=== PATIENT | male | born 1970 | race Caucasian/White ===

== ENCOUNTER 2021-05-09 02:17 | Day surgery (SDC) | payer BC, SELFPAY ==
[2021-04-25 14:54] VITALS: BMI 23.2
[2021-05-09 09:22] VITALS: BP 122/92; PULSE 96; RESP 18; TEMP 36.2; O2SAT 99
[2021-05-09] MEDS: LACTATED RINGERS 1,000 ML 150 ML IV CONT (09:42)
--- NOTE | 2021-05-09 10:13 | WPDANESEPPF ---
Anes - Initial Pre Proc Eval Procedure: Operation Date: 05/09/21 10:30 Proposed Procedures p Screening Colonoscopy - Florencio Trevizo MD Date/Time: 05/09/21 10:13 Surgeon: Florencio Trevizo MD Pre Op Diagnosis: neoplasm screening Patient Data Age: 50 Gender: M Height: 1.77 m Weight: 72.5 kg Last Vital Signs Temp 97.1 F L 05/09/21 09:22 Pulse 96 05/09/21 09:22 Resp 18 05/09/21 09:22 BP 122/92 H 05/09/21 09:22 Pulse Ox 99 05/09/21 09:22 Allergies Allergy/AdvReac Type Severity Reaction Status Date / Time Penicillins Allergy Unknown Rash Verified 11/11/20 08:40 Home Medications Medication Instructions Recorded Confirmed Type No Home Medications 05/01/20 11/11/20 History Patient hx anesthesia problems: none Family hx anesthesia problems: none Results Review: All pre-operative results and documents have been reviewed as part of the pre-operative evaluation. COUNTS INCLUDE 234 BEDS AT THE [facility] Past Medical History Medical History (Updated 05/09/21 @ 10:04 by Reymundo Ortiz MD) Benign essential HTN History of kidney stones Mixed hyperlipidemia Surgical History Surgical History History of lithotripsy Family History Family History Father Family history of diabetes mellitus in first degree relative Family history of coronary artery disease Mother Family history of malignant neoplasm of thyroid Social History Social History Smoking packs per day: 1 Smoking cigarettes per day: 20.0 Years smoked: 8 Smoking pack-years: 8.00 Smoking status: Former smoker Tobacco type: cigarettes Smoking end date: 08/16/04 Alcohol intake: current Drinks per week: 2 Alcohol use details: occasional Substance use: never Substance use type: does not use Living arrangements: with family Gender identity (if verbalized by the patient): Male Spiritual care concerns: No Anes - Eval Final PreProcedure Day of Procedure 05/09/21 10:13 Patient weight: normal Heart: regular rate and rhythm Airway: Mallampati scale class II Neurological: alert and oriented Last oral intake: >/= 8 hours ASA classification: II Emergent: no Anesthetic plan: proceed Anesthesia type and monitoring: general GIVS and standard monitoring Results Review: All pre-operative results and documents have been reviewed as part of the pre-operative evaluation. Informed Consent: The patient's anesthetic plan and its attendant risks and benefits were discussed with the patient/family/POA. Questions were solicited and answers provided to the satisfaction of the patient/family/POA.
--- NOTE | 2021-05-09 10:20 | PM.HPGS ---
History of Present Illness History of Present Illness Consent: Risks, benefits, and alternatives have been discussed and questions answered. Patient agrees to proceed with procedure. Chief complaint: neoplasm screening Narrative: Yoni Segovia is a 50 year old male here for first screening colonoscopy Review of Systems Constitutional: Constitutional: Denies headache(s) and Denies weakness Eyes: Eyes: Denies blurry vision ENT: Reports Normal hearing present, Denies headache(s) and Denies neck pain Cardiovascular: Cardiovascular: Denies chest pain and Denies dyspnea Respiratory: Respiratory: Denies dyspnea Gastrointestinal: Gastrointestinal: Reports no additional gastrointestinal complaints Genitourinary: Genitourinary: Denies dysuria Musculoskeletal: Musculoskeletal: Denies neck pain Integumentary/Breasts: Skin/Breast: Denies dry skin Neurologic: Reports Normal hearing present, Denies headache(s) and Denies weakness Psychiatric: Psychiatric: Denies anxiety Endocrine: Endocrine: Denies change in body appearance Hematologic/Lymphatic: Hematologic/Lymphatic: Denies easy bleeding Allergic/Immunologic: Allergic/Immunologic: Denies urticaria [facility] Past Medical History Medical History (Updated 05/09/21 @ 10:20 by Florencio Trevizo MD) Benign essential HTN Colon cancer screening History of kidney stones Mixed hyperlipidemia Surgical History Surgical History History of lithotripsy Family History Family History Father Family history of diabetes mellitus in first degree relative Family history of coronary artery disease Mother Family history of malignant neoplasm of thyroid Social History Social History Smoking packs per day: 1 Smoking cigarettes per day: 20.0 Years smoked: 8 Smoking pack-years: 8.00 Smoking status: Former smoker Tobacco type: cigarettes Smoking end date: 08/16/04 Alcohol intake: current Drinks per week: 2 Alcohol use details: occasional Substance use: never Substance use type: does not use Living arrangements: with family Gender identity (if verbalized by the patient): Male Spiritual care concerns: No Meds Home Medications and Allergies Home Medications Medication Instructions Recorded Confirmed Type No Home Medications 05/01/20 11/11/20 History Allergies Allergy/AdvReac Type Severity Reaction Status Date / Time Penicillins Allergy Unknown Rash Verified 11/11/20 08:40 Vital Signs Vital Signs - 24 hr 05/09/21 09:22 Temperature 97.1 F L Pulse Rate 96 Respiratory Rate 18 Blood Pressure 122/92 H Pulse Oximetry 99 Exam Const: General: comfortable and no acute distress HENMT: General nose exam: Normal nares present Eyes: General: appearance normal, both eyes and all related structures Neck: Neck: no JVD Resp: Auscultation: clear to auscultation bilaterally Cardio: Rate: regular rate Rhythm: regular rhythm GI: Inspection: non-distended GI Palp: Yes Soft to palpation Skin: General skin exam: normal color Neuro: General: gait normal Speech: normal speech Extrem: General: normal to inspection Psych: Mental Status: mental status grossly normal Assessment and Plan Assessment and plan (1) Colon cancer screening: Code(s): Z12.11 - Encounter for screening for malignant neoplasm of colon Status: Acute Assessment and Plan: colonoscopy
[2021-05-09 10:48] VITALS: BP 89/60; PULSE 78; RESP 20; O2SAT 95
[2021-05-09 10:58] VITALS: BP 92/63; PULSE 74; RESP 15; O2SAT 93
[2021-05-09 11:08] VITALS: BP 105/77; PULSE 69; RESP 15; O2SAT 95
[2021-05-09 11:18] VITALS: BP 118/80; PULSE 72; RESP 16; O2SAT 96
== END 2021-05-09 11:35 | disposition home or self-care (01) ==
PROVIDERS: PCP Family Medicine; Visit Provider Internal Medicine Gastroenterology
PROC: 0DJD8ZZ Inspection of Lower Intestinal Tract, Via Natural or Artificial Opening Endoscopic (ICD-10-PCS; CPT 45378; principal; 2021-05-09 10:30)
DX: Z12.11 Encounter for screening for malignant neoplasm of colon (principal); K64.8 Other hemorrhoids; D12.3 Benign neoplasm of transverse colon; I10 Essential (primary) hypertension; E78.2 Mixed hyperlipidemia; Z87.891 Personal history of nicotine dependence
CPT/HCPCS: 45380; 88305; J2704; J7120

== ENCOUNTER 2022-06-16 12:11 | Outpatient (CLI) | payer BC, SELFPAY ==
--- NOTE | ~2022-06-16 | CT_ITS ---
EXAMINATION: CT abdomen pelvis wo con DATE: 06/16/2022 12:28 INDICATION: Abdominal pain TECHNIQUE: Computed tomography (CT) of the abdomen and pelvis was performed without intravenous contr ast. Automated exposure control and iterative reconstruction technique were employed. The dose-length product was 197.88 mGy-cm. COMPARISON: None FINDINGS: Lung bases are clear. Heart size is normal. No pericardial or pleural effusion. Couple calcified gall stones in the normal-appearing gallbladder with no evident wall thickening or pericholecystic inflamm atory stranding to suggest acute cholecystitis. No intra or extra hepatic biliary ductal dilation. Li jose c, spleen, pancreas and bilateral adrenal glands are normal. 6 x 5 x 4 mm obstructing stone at the left ureteropelvic junction resulting in mild left hydronephrosis with mild left perinephric strandin g. A couple nonobstructing 1 mm stones in the right kidney. Bladder is normal. Mild prostatomegaly me asuring 4.8 x 3.5 cm. Very small bilateral fat-containing inguinal hernias. Bowels including the appe ndix are normal. No free intraperitoneal gas or fluid. No pathologically enlarged abdominal or pelvic lymphadenopathy. Minimal scattered degenerative skeletal changes. IMPRESSION: 1. Bilateral nephrolithiasis with obstructing 6 cm stone at the left ureteropelvic junction resulting in mild left hydronephrosis. In the perinephric stranding without correlate with urinalysis to exclu de associated urinary tract infection. 2. Cholelithiasis. Reviewed, dictated and finalized at location B. IMPRESSION: 1. Bilateral nephrolithiasis with obstructing 6 cm stone at the left ureteropel kelsie junction resulting in mild left hydronephrosis. In the perinephric strandin g without correlate with urinalysis to exclude associated urinary tract infecti on. 2. Cholelithiasis.
[2022-06-16 12:41] LABS: Basophils Percent Auto 0.3 % (0.2-1.2); Hematocrit 46.3 % (42.0-52.0); Hemoglobin 15.4 g/dL (14.0-18.0); Immature Granulocyte Absolute 0.05 K/mm3 (0.00-0.031); Immature Granulocyte Percent A 0.4 % (0-0.5); Lymphocytes Absolute Auto 0.93 K/mm3 (0.9-3.2); Lymphocytes Percent Auto 7.7 % (18.3-44.2); Mean Corpuscular HGB Conc 33.3 g/dl (32-36); Mean Corpuscular Hemoglobin 29.1 pg (26-34); Mean Corpuscular Volume 87.4 fl (80-100); Monocytes Absolute Auto 0.7 K/mm3 (0.1-0.6); Monocytes Percent Auto 5.9 % (2.6-8.5); Neutrophils Absolute Auto 10.4 K/mm3 (1.3-6.7); Neutrophils Percent Auto 85.7 % (45.5-73.1); Platelet Count Result 221 k/mm3 (150-375); Red Cell Distribution Width 12.9 % (11.5-14.5); White Blood Count 12.2 K/mm3 (4.5-10.0)
[2022-06-16 12:43] LABS: Appearance Urine Clear (Clear); Bilirubin Urine Negative (Negative); Blood Urine Negative (Negative); Color Urine Yellow (Yellow); Glucose Urine UA Negative (Negative); Ketones Urine 2+ mg/dL (Negative); Leukocyte Esterase Ur Negative LEU/UL (Negative); Nitrate Urine Negative (Negative); Protein Urine Negative (Negative); Urobilinogen Urine 0.2 mg/dL (<2.0)
[2022-06-16 12:45] LABS: Mucus Urine Rare /lpf; RBC Urine 0-2 /hpf (0-2); WBC Urine 0-3 /hpf
[2022-06-16 12:52] LABS: Alanine Aminotransferase 25 U/L (6-50); Albumin Level 4.9 g/dL (3.5-5.1); Alkaline Phosphatase 82 U/L (38-126); Anion Gap 11 mmol/L (8-16); Aspartate Amino Transferase 37 U/L (17-59); Bilirubin,Total 1.2 mg/dL (0.2-1.3); Blood Urea Nitrogen 17 mg/dL (9-20); Calcium 8.9 mg/dL (8.4-10.2); Carbon Dioxide 27 mmol/L (22-30); Chloride 98 mmol/L (98-107); Estimated Glomerular Filt Rate 46; Glucose 108 mg/dL (65-110); Potassium 4.2 mmol/L (3.4-5.0); Sodium 136 mmol/L (137-145)
[2022-06-16 13:01] LABS: Add Urine Microscopic? YES
== END 2022-06-16 12:12 | disposition home or self-care (01) ==
LOC: ANHIMG 12:13
PROVIDERS: PCP Family Medicine; Visit Provider Physician Assistant
DX: R10.9 Unspecified abdominal pain (principal); K80.20 Calculus of gallbladder without cholecystitis without obstruction; N20.0 Calculus of kidney
CPT/HCPCS: 36415; 74176; 80053; 81001; 85025

== ENCOUNTER 2022-06-16 13:53 | Day surgery (SDC) | payer BC, SELFPAY ==
[2022-06-16] VITALS (11 sets, daily range): BP systolic 90–150; BP diastolic 53–92; PULSE 54–70; RESP 10–18; TEMP 36.1–37.4; O2SAT 98–100
--- NOTE | ~2022-06-16 | XR_ITS ---
EXAMINATION: XR retrograde pyelo w/stent LT DATE: 06/16/2022 16:50 CDT INDICATION: KIDNEY STONE . TECHNIQUE: 9 fluoroscopic images of the left abdomen and pelvis were obtained during left retrograde pyelography with stent placement performed by the surgeon. I was not present in the operating room. F luoroscopy exposure time was 27.4 seconds. DAP [id number] [id number]. COMPARISON: X-ray and CT abdomen 06/16/2022. FINDINGS: Wire access to the left collecting system followed by stent deployment. The stent appears to be in go od position. Contrast fills a mildly dilated left calyces and left renal pelvis. IMPRESSION: Fluoroscopic documentation of left retrograde pyelography and stent placement. Please refer to the op erative note for complete procedural details . Reviewed, dictated and finalized at location K. IMPRESSION: Fluoroscopic documentation of left retrograde pyelography and stent placement. Please refer to the operative note for complete procedural details .
--- NOTE | ~2022-06-16 | XR_ITS ---
XR abdomen/kub 1V DATE: 06/16/2022 15:44 INDICATION: Ureterolithiasis TECHNIQUE: Portable supine AP views of the abdomen COMPARISON: 06/16/2022 CT abdomen pelvis FINDINGS: And approximately 5 mm calcification overlies the proximal left ureter at the L2-3 level as noted on 06/16/2022 CT abdomen pelvis examination. The psoas shadows are intact. No visceromegaly is evident. No evidence of bowel obstruction. Included skeletal structures are unremarkable. IMPRESSION: Approximately 5 mm calcified calculus of the left ureter at L2-3 level Reviewed, dictated and finalized at Location A. Reviewed, dictated and finalized at location A. IMPRESSION: Approximately 5 mm calcified calculus of the left ureter at L2-3 donavan olmedo
--- NOTE | 2022-06-16 14:56 | ED.MALEGU ---
HPI - Male Genitourinary General Chief complaint: Urogenital-Male Stated complaint: L KIDNEY STONE Time Seen by Provider: 06/16/22 14:46 History of Present Illness HPI Narrative: Pt developed left flank pain radiating into groin yesterday around noon. Pt has had intemittent spells since but got worse this morning. Pt called his PCP who ordered outpatient work up for kidney stone and gave shot of pain meds in office. Pt has 6 mm left UVJ stone with mild obstruction. Urology contacted but patient sent here for pain control. Pt has not eaten since yesterday at noon and had a little water early this morning. Related Data Allergies Allergy/AdvReac Type Severity Reaction Status Date / Time Penicillins Allergy Unknown Rash Verified 06/16/22 14:57 Review of Systems Review of Systems: All systems reviewed & are unremarkable except as noted in HPI and below PMFSH Past Medical History Medical History Benign essential HTN Colon cancer screening History of kidney stones HLD (hyperlipidemia) Mixed hyperlipidemia Surgical History Surgical History History of lithotripsy Family History Family History Father Family history of diabetes mellitus in first degree relative Family history of coronary artery disease Mother Family history of malignant neoplasm of thyroid Social History Social History Social History: Smoking packs per day: 1 Smoking cigarettes per day: 20.0 Years smoked: 8 Smoking pack-years: 8.00 Smoking status: Former smoker Tobacco type: cigarettes Smoking end date: 08/16/04 Alcohol intake: current Alcohol use details: occasionally Substance use: never Substance use type: does not use Gender identity (if verbalized by the patient): Male Sexual Orientation (if Verbalized by the Patient): Straight or Heterosexual Spiritual care concerns: No Exam Const: General: healthy appearing and no acute distress Nutritional Appearance: well nourished Eyes: EOM: EOMs intact bilaterally Neck: Neck: normal visual inspection and no meningeal signs Resp: Effort & Inspection: normal respiratory effort Auscultation: clear to auscultation bilaterally Cardio: Rate: regular rate Rhythm: regular rhythm GI: GI Palp: Yes Soft to palpation Auscultation: normal bowel sounds Back/Spine/Pelvis: Back: CVA tenderness (left) Skin: General skin exam: normal color Rashes: no rashes Wounds: no wounds Neuro: General: patient oriented x3, moves all extremities, no meningeal signs and no focal motor deficits Speech: normal speech Extrem: General: normal to inspection and no clubbing, cyanosis or edema Psych: Mental Status: mental status grossly normal Affect: normal affect Attitude: cooperative Course Course Emergency Course: discussed with dr goldman, said if pt got toradol in office (pt did get toradol PA in office told our SHAUNA, Ashley during report it was toradol), will have to get a stent because can't get lithotripsy until next week. Pt pain about 5/10 after dilaudid. Unlikely to get pain control with oral meds at home. will admit for pain control and stent placement tomorrow. d/w julian quinteros agrees to admit, dr goldman called back and said a spot opened up in OR and they could take him and put the stent in today and discharge afterward Vital Signs Vital signs: Vital Signs Temperature 97.0 F L 06/16/22 13:54 Pulse Rate 66 06/16/22 13:54 Respiratory Rate 16 06/16/22 13:54 Blood Pressure 146/91 H 06/16/22 13:54 Pulse Oximetry 100 06/16/22 13:54 Temperature 98.1 F 06/16/22 17:24 Pulse Rate 63 06/16/22 19:00 Respiratory Rate 16 06/16/22 19:00 Blood Pressure 137/83 06/16/22 19:00 Pulse Oximetry 100 06/16/22 18:05 Oxygen Del
[2022-06-16] MEDS: SODIUM CHLORIDE 0.9% IV 1,000 ML 999 ML IV CONT (15:07)
[2022-06-16] MEDS: ONDANSETRON INJ 4 MG/2 ML VIAL IV PUSH (15:07)
[2022-06-16] MEDS: HYDROmorphone HCL INJ (*CRX) 1 MG/ML SYR IV PUSH (15:07)
--- NOTE | 2022-06-16 16:20 | P.PNAN_ITS ---
Anes - Initial Pre Proc Eval Procedure: Operation Date: 06/16/22 16:30 Proposed Procedures p Cystoscopy, Left Retrograde Pyelogram, Possible Stone Extraction, Possible Left Stent Placement; Possible Left Ureteroscopy; Possible Holmium Laser(Left) - Hima Sweeney MD Date/Time: 06/16/22 16:20 Surgeon: Hima Sweeney MD Pre Op Diagnosis: L KIDNEY STONE Patient Data Age: 51 Gender: M Height: 1.75 m Weight: 74.5 kg Last Vital Signs Temp 36.1 C L 06/16/22 13:54 Pulse 63 06/16/22 16:04 Resp 16 06/16/22 16:04 BP 140/88 06/16/22 16:04 Pulse Ox 98 06/16/22 16:04 Allergies Allergy/AdvReac Type Severity Reaction Status Date / Time Penicillins Allergy Unknown Rash Verified 06/16/22 14:57 Home Medications Medication Instructions Recorded Confirmed Type tramadol 50 mg tablet 50 mg PO Q6H PRN severe pain 06/16/22 06/16/22 Rx (scale score 7-10) #20 tabs Patient hx anesthesia problems: none Family hx anesthesia problems: none Results Review: All pre-operative results and documents have been reviewed as part of the pre- operative evaluation. COUNT INCLUDES [facility] Past Medical History Medical History Benign essential HTN Colon cancer screening History of kidney stones HLD (hyperlipidemia) Mixed hyperlipidemia Surgical History Surgical History History of lithotripsy Family History Family History Father Family history of diabetes mellitus in first degree relative Family history of coronary artery disease Mother Family history of malignant neoplasm of thyroid Social History Social History Social History: Smoking packs per day: 1 Smoking cigarettes per day: 20.0 Years smoked: 8 Smoking pack-years: 8.00 Smoking status: Former smoker Tobacco type: cigarettes Smoking end date: 08/16/04 Alcohol intake: current Alcohol use details: occasionally Substance use: never Substance use type: does not use Gender identity (if verbalized by the patient): Male Sexual Orientation (if Verbalized by the Patient): Straight or Heterosexual Spiritual care concerns: No Anes - Eval Final PreProcedure Day of Procedure 06/16/22 16:20 Patient weight: normal Heart: regular rate and rhythm Lungs: clear to auscultation Airway: Mallampati scale class II Neurological: alert and oriented Last oral intake: >/= 8 hours ASA classification: II Emergent: no Anesthetic plan: proceed Anesthesia type and monitoring: general LMA and standard monitoring Results Review: All pre-operative results and documents have been reviewed as part of the pre- operative evaluation. Informed Consent: The patient's anesthetic plan and its attendant risks and benefits were discussed with the patient/family/POA. Questions were solicited and answers provided to the satisfaction of the patient/family/POA.
--- NOTE | 2022-06-16 16:26 | WPDURCON ---
Assessment and Plan Assessment and plan (1) Ureterolithiasis: Code(s): N20.1 - Calculus of ureter Status: Acute Assessment and Plan: Obtain Consent Keep NPO Plan to go to the OR: Cystoscopy, left ureteroscopy with possible stone extraction, possible left stent placement, possible holmium laser, left retrograde pyelogram with Dr. Sweeney today. Plan to discharge home afterward. Tramadol was sent to [facility] by PCP today, he will also go home with abx. Urology Consult Note HPI Date Seen: 06/16/22 Time Seen: 16:27 Requesting Physician: Hima Sweeney MD Primary Care Provider: José Manuel Glover MD Consult Narrative Reason for consult: Left Ureteral Stone Narrative: Yoni Segovia is a 51 year old male who presented to Dr. Glover's office earlier today with severe left flank pain that radiated to the left lower quadrant. 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 It is accompanied by urgency,frequency and nausea. He denies hematuria, dysuria or fever. He was sent to Radiology for a stat CT following an IM injection of Ketorolac in the office which shows a 6mm left UPJ stone with hydronephrosis and an additional 1mm right renal stone that is non obstructive. His KUB shows the left ureteral stone. Dr. Glover's office called our office to see if we could see him today, however, I suggested he go to the ER as his pain was so severe that he would need a stent emergently or ureteroscopy. In the ER, he was found to have a WBC of 12.2, creatinine is 1.60 and his baseline creatinine was 0.88 in 05/06. His UA appears negative and not infectious at this time. He is afebrile and vitals are stable. Pain is not improved after multiple attempts at IV pain meds. He has a history of kidney stones with [facility] at [facility] in 2004. Review of Systems Cardiovascular: Cardiovascular: Denies chest pain Respiratory: Respiratory: Reports no additional respiratory complaints Gastrointestinal: Gastrointestinal: Reports abdominal pain, Reports nausea and Denies vomiting Genitourinary: Genitourinary: Denies hematuria, Denies dysuria, Reports flank pain, Reports urinary frequency, Denies urinary hesitancy, Denies urinary incontinence and Reports urinary urgency [facility] Past Medical History Medical History Benign essential HTN Colon cancer screening History of kidney stones HLD (hyperlipidemia) Mixed hyperlipidemia Surgical History Surgical History History of lithotripsy Family History Family History Father Family history of diabetes mellitus in first degree relative Family history of coronary artery disease Mother Family history of malignant neoplasm of thyroid Social History Social History Social History: Smoking packs per day: 1 Smoking cigarettes per day: 20.0 Years smoked: 8 Smoking pack-years: 8.00 Smoking status: Former smoker Tobacco type: cigarettes Smoking end date: 08/16/04 Alcohol intake: current Alcohol use details: occasionally Substance use: never Substance use type: does not use Gender identity (if verbalized by the patient): Male Sexual Orientation (if Verbalized by the Patient): Straight or Heterosexual Spiritual care concerns: No Meds Home Medications and Allergies Home Medications Medication Instructions Recorded Confirmed Type tramadol 50 mg tablet 50 mg PO Q6H PRN severe pain 06/16/22 06/16/22 Rx (scale score 7-10) #20 tabs Allergies Allergy/AdvReac Type Severity Reaction Status Date / Time Penicillins Allergy Unknown Rash Verified 06/16/22 14:57 Vital Signs Vital Signs - 24 hr 06/16/22 13:54 06/16/22 14:56 06/16/22 16:04 Temperature 97.0 F L Pulse Rate 66 6
--- NOTE | 2022-06-16 16:37 | WPDHPUPDATE1 ---
History and Physical Update Update Date/Time: 06/16/22 16:37 History and Physical has been reviewed, including an updated exam of the patient. There are NO changes in the patient's condition. Risks, benefits, and alternatives have been discussed and questions answered. Patient agrees to proceed with procedure. Proceed with cysto, left retrograde, left stent, possible left ureteroscopy with laser, stent placement.
[2022-06-16] MEDS: LACTATED RINGERS 1,000 ML 30 ML IV CONT (16:38)
[2022-06-16] MEDS: ceFAZolin SODIUM 1 GM VIAL 2 GM IV PUSH (16:47)
--- NOTE | 2022-06-16 17:19 | W.PM.PROC2 ---
Procedure Note - Detailed Date of Procedure 06/16/22 Pre-op Diagnosis LEFT PROXIMAL URETERAL STONE Post-op Diagnosis Same Procedure Performed CYSTOSCOPY, left retrograde pyelogram, attempted left ureteroscopy with ureteral dilation, left ureteral stent placement 4.8 Nigerien contour stent Surgeon Hima Sweeney MD Anesthesia General Findings Very tight left intramural ureter with inability to pass dilators and ureteral scopes Description of Procedure Patient is taken the operative suite correctly identified. Once anesthesia was obtained was placed in dorsal lithotomy position and prepped and draped usual sterile fashion. Nineteen Nigerien scope was inserted into the urethra. There were no urethral strictures. Prostate nonobstructive. Pt in the bladder there was no tumors. The left ureteral orifice was cannulated with a guidewire. The 8/10 dilator was attempted however we could not get it past the intramural ureter. I also used a ureteral access sheath which was also unsuccessful in passing this area. A rigid ureteral scope was then inserted into the left ureteral orifice but the intramural ureter was extremely tight and I could not manipulate the scope in any further. At this point was decided to simply place a stent. A pyelogram was performed to confirm placement of the stent. 4.8 Nigerien contour stent was then placed with the proximal end in the renal pelvis the distal in the bladder. 2% viscous lidocaine was then inserted into the bladder. He is taken recovery stable condition. He will be discharged home. He received Toradol this morning at his primary care docs office. This precludes him from lithotripsy this Wednesday. We will schedule him for next Wednesday. If he wishes something sooner it will be at the surgical center. Drains Yes Packing No Pathology None sent Complications No immediate complications Condition Stable Disposition PACU
== END 2022-06-16 19:15 | disposition home or self-care (01) ==
LOC: ANHED 15:52 → ANHSURGERY 16:06
PROVIDERS: Emergency Provider Emergency Medicine; PCP Family Medicine; Visit Provider Urology
PROC: (CPT 52352; principal; 2022-06-16 16:30)
DX: N13.2 Hydronephrosis with renal and ureteral calculous obstruction (principal); I10 Essential (primary) hypertension; E78.2 Mixed hyperlipidemia; Z87.891 Personal history of nicotine dependence
CPT/HCPCS: 52332; 74018; 74420; 96361; 96374; 96375; 99285; A9270; C1758; C1769; C1894; C2617; J0690; J1100; J1170; J2250; J2405; J2704; J3010; J7030; J7120

== ENCOUNTER 2022-06-19 13:00 | Outpatient (CLI) | payer BC, SELFPAY ==
[2022-06-19 13:49] LABS: Partial Thromboplastin Time 27.5 SECONDS (22.3-36.8); Prothrombin Time 12.3 Seconds (11.1-14.7)
== END 2022-06-19 13:01 | disposition home or self-care (01) ==
LOC: ANHSURGERY 13:01
PROVIDERS: PCP Family Medicine; Visit Provider Urology
DX: N20.1 Calculus of ureter (principal); Z01.818 Encounter for other preprocedural examination
CPT/HCPCS: 36415; 85610; 85730; 87086

== ENCOUNTER 2022-06-26 00:44 | Day surgery (SDC) | payer BC, SELFPAY ==
[2022-06-18 14:24] VITALS: BMI 24.0
--- NOTE | 2022-06-18 14:28 | PC.NURSE ---
Report to the Outpatient Waiting Room, entrance under the green pavilion located off [facility], at time 6:30 on date 06/26/22. Planned Procedure Time: 8:30. Time changes happen often and if your time is changed the preop area will call you the afternoon before. - You and your visitor will be asked to self-screen and do not enter if you have any COVID symptoms. - We encourage only one visitor and NO visitors under age 16 are allowed at this time. Your visitor will receive communication by the phone number that is given day of service. - The patient visitor is requested to social distance or may leave the building when not with patient due to restrictions. - A mask is OPTIONAL within the hospital. Patients may have clear liquids (water, carbonated beverages, clear teas, apple juice) until 3 hours prior to surgery (5:30) with a maximum of 20 ounces. - No food from midnight until time of surgery Take the following medications with a SIP of water the morning of surgery: BACTRIM, PAIN PILL IF NEEDED Medications to discontinue per physician: N/A Date to take last dose: N/A Please no make-up, nail kazakh, hairspray, perfume, deodorant, or body powder the day of surgery. No jewelry (including any body piercings) or valuables the day of surgery, leave them at home. Please take a shower or bath the night before, or the morning of, surgery with an antibacterial soap. Wear comfortable, loose fitting clothing. - Jewelry must be removed prior to entering the operating room. Rings and piercings that are not removed may be cut off. - The hospital will not accept responsibility for valuables. - Please leave all valuables, including medications, at home the day of surgery. If you are going home after surgery, a licensed route sales driver must drive you home. - NO public transportation without another adult. - We recommend that an adult stay with you for 24 hours following discharge. - We also recommend that you do not drive, make important decision, drink alcoholic beverages, or take any drugs that were not prescribed by your health care provider for at least 24 hours after your discharge time. Follow any additional instructions given to you from your surgeon. If you or anyone in your household have experienced Covid symptoms in the past week, please notify your surgeon or the nurse liaison at the phone number below for possible testing. Telephone instructions given to JACKIE - CATHLEEN KELLER and asked if any additional questions and then verbalized understanding. Patient advised to call surgeon office or pre surgery nurse liaison [phone] if any additional questions.
--- NOTE | 2022-06-22 08:01 | P.HP_ITS ---
History of Present Illness History of Present Illness Consent: Risks, benefits, and alternatives have been discussed and questions answered. Patient agrees to proceed with procedure. Chief complaint: left upj calculus Narrative: Yoni Segovia is a 51 year old male With a history of urolithiasis recently presented to the ED with left flank pain. Imaging demonstrated a 6 mm obstructing left UPJ stone. He has undergone left ureteral stent placement and now presents for left ESWL. He is aware the risk including, but not limited to, residual fragments that may require additional intervention, perinephric hematoma, postoperative infection. Review of Systems Cardiovascular: Cardiovascular: Denies chest pain, Denies lightheadedness, Denies palpitations and Denies dyspnea Respiratory: Respiratory: Denies dyspnea Gastrointestinal: Gastrointestinal: Denies diarrhea, Denies nausea and Denies vomiting Genitourinary: Genitourinary: Denies hematuria and Denies dysuria Endocrine: Endocrine: Denies palpitations PMFSH Past Medical History Medical History Benign essential HTN Colon cancer screening History of kidney stones HLD (hyperlipidemia) Mixed hyperlipidemia Surgical History Surgical History History of lithotripsy Family History Family History Father Family history of diabetes mellitus in first degree relative Family history of coronary artery disease Mother Family history of malignant neoplasm of thyroid Social History Social History Social History: Smoking packs per day: 0.75 Smoking cigarettes per day: 15.0 Years smoked: 6 Smoking pack-years: 4.50 Smoking status: Former smoker Tobacco type: cigarettes Smoking end date: 08/16/01 Alcohol intake: current Alcohol use details: OCCASIONALLY Substance use: never Substance use type: does not use Gender identity (if verbalized by the patient): Male Sexual Orientation (if Verbalized by the Patient): Straight or Heterosexual Spiritual care concerns: No Meds Home Medications and Allergies Home Medications Medication Instructions Recorded Confirmed Type sulfamethoxazole 400 1 tablet PO BID #10 tabs 06/16/22 06/18/22 Rx mg-trimethoprim 80 mg tablet (Bactrim) tramadol 50 mg tablet 50 mg PO Q6H PRN severe pain 06/16/22 06/18/22 Rx (scale score 7-10) #20 tabs Allergies Allergy/AdvReac Type Severity Reaction Status Date / Time Penicillins Allergy Unknown Rash Verified 06/18/22 14:23 Exam Const: General: no acute distress Resp: Effort & Inspection: normal respiratory effort GI: Inspection: non-distended GI Palp: No abdominal tenderness and No Guarding due to palpation present (GI) Auscultation: normal bowel sounds Assessment and Plan Assessment and plan (1) Ureterolithiasis: Code(s): N20.1 - Calculus of ureter Status: Acute Assessment and Plan: * Left ESWL
--- NOTE | 2022-06-25 13:36 | P.PNAN_ITS ---
Anes - Initial Pre Proc Eval Procedure: Operation Date: 06/26/22 07:30 Proposed Procedures p Left Ureteropelvic Junction, Extracorporeal Shock Wave Lithotripsy - Pernell Link MD Date/Time: 06/25/22 13:36 Surgeon: Pernell Link MD Pre Op Diagnosis: left upj calculus Patient Data Age: 51 Gender: M Height: 1.75 m Weight: 73.94 kg Allergies Allergy/AdvReac Type Severity Reaction Status Date / Time Penicillins Allergy Unknown Rash Verified 06/26/22 06:32 Home Medications Medication Instructions Recorded Confirmed Type sulfamethoxazole 400 1 tablet PO BID #10 tabs 06/16/22 06/18/22 Rx mg-trimethoprim 80 mg tablet (Bactrim) tramadol 50 mg tablet 50 mg PO Q6H PRN severe pain 06/16/22 06/18/22 Rx (scale score 7-10) #20 tabs Patient hx anesthesia problems: none Family hx anesthesia problems: none Results Review: All pre-operative results and documents have been reviewed as part of the pre- operative evaluation. [facility] Past Medical History Medical History Benign essential HTN Colon cancer screening History of kidney stones HLD (hyperlipidemia) Mixed hyperlipidemia Surgical History Surgical History History of lithotripsy Family History Family History Father Family history of diabetes mellitus in first degree relative Family history of coronary artery disease Mother Family history of malignant neoplasm of thyroid Social History Social History Social History: Smoking packs per day: 0.75 Smoking cigarettes per day: 15.0 Years smoked: 6 Smoking pack-years: 4.50 Smoking status: Former smoker Tobacco type: cigarettes Smoking end date: 08/16/01 Alcohol intake: current Alcohol use details: OCCASIONALLY Substance use: never Substance use type: does not use Living arrangements: with family Gender identity (if verbalized by the patient): Male Sexual Orientation (if Verbalized by the Patient): Straight or Heterosexual Spiritual care concerns: No Anes - Eval Final PreProcedure Day of Procedure 06/25/22 13:36 Patient weight: normal Heart: regular rate and rhythm Lungs: clear to auscultation Airway: Mallampati scale class II Neurological: alert and oriented Last oral intake: >/= 8 hours ASA classification: II Emergent: no Anesthetic plan: proceed Anesthesia type and monitoring: general LMA and standard monitoring Results Review: All pre-operative results and documents have been reviewed as part of the pre- operative evaluation. Informed Consent: The patient's anesthetic plan and its attendant risks and benefits were discussed with the patient/family/POA. Questions were solicited and answers provided to the satisfaction of the patient/family/POA.
[2022-06-26] VITALS (8 sets, daily range): BP systolic 104–139; BP diastolic 71–96; PULSE 66–74; RESP 10–20; TEMP 36.3–36.7; O2SAT 98–100; BMI 24.6
--- NOTE | ~2022-06-26 | XR_ITS ---
EXAMINATION: XR abdomen/kub 1V INDICATION: Left nephrolithiasis TECHNIQUE: Supine views of the abdomen were obtained on 2 radiographs. COMPARISON: 06/16/2022 FINDINGS: A left internal ureteral stent has been inserted in expected position. The previously descr ibed 6 mm left ureteropelvic junction stone is now seen in the lower pole of the left kidney. No ston es are identified along the left internal ureteral stent. There is a moderate volume of colonic stool . The visualized lung bases are clear. Phleboliths are noted in the left pelvis. IMPRESSION: 1. Left internal ureteral stent in expected position with previously described left UPJ stone now see n in the lower pole of the left kidney. Reviewed, dictated and finalized at location B. [facility] IMPRESSION: 1. Left internal ureteral stent in expected position with previously described left UPJ stone now seen in the lower pole of the left kidney.
--- NOTE | 2022-06-26 06:45 | WPDHPUPDATE1 ---
History and Physical Update Update Date/Time: 06/26/22 06:45 History and Physical has been reviewed, including an updated exam of the patient. There are NO changes in the patient's condition. Risks, benefits, and alternatives have been discussed and questions answered. Patient agrees to proceed with procedure.
[2022-06-26] MEDS: LACTATED RINGERS 1,000 ML 30 ML IV CONT (06:50)
[2022-06-26] MEDS: ceFAZolin 2 GM/D5W 50 ML 2 GM/50 ML BAG IVPB (07:29)
--- NOTE | 2022-06-26 08:14 | P.OP_ITS ---
Procedure Note - Detailed Date of Procedure 06/26/22 Pre-op Diagnosis Left renal calculus Post-op Diagnosis Same Procedure Performed Cystoscopy, left ureteral stent removal and left ESWL Surgeon Pernell Link MD Anesthesia General Description of Procedure The patient was brought to the operative suite where he was placed in the supine position on the Dornier lithotripter table. Flexible cystoscopy was undertaken with a 16F flexible cystoscopy. There were no urethral strictures. The prostatic urethra estimated length was 1.5cm. There was no obstruction of the prostatic urethra with no median lobe enlargement. The bladder mucosa was normal and there was a single, orthotopic ureteral orifice bilaterally. Tip of the indwelling stent was grasped and the stent was removed with ease. The patient was then repositioned in the supine position with the focal point of the lithotriptor on a 6mm left renal calculus. A total of 2500 shocks were delivered at a power setting of 4. There appeared to be good fragmentation of the stone. The patient tolerated the procedure well and was taken to the r ecovery room in good condition. Pathology None sent Complications No immediate complications Condition Stable
== END 2022-06-26 10:25 | disposition home health service (06) ==
PROVIDERS: PCP Family Medicine; Visit Provider Urology
PROC: (CPT 50590; principal; 2022-06-26 07:30)
DX: N20.0 Calculus of kidney (principal); I10 Essential (primary) hypertension; E78.2 Mixed hyperlipidemia; Z87.891 Personal history of nicotine dependence
CPT/HCPCS: 50590; 52315; 36415; 74018; 85610; 85730; 87086; J0690; J1100; J2250; J2405; J2704; J3010; J7120

== ENCOUNTER → 2022-07-10 10:23 | Outpatient (CLI) | payer BC, SELFPAY ==
--- NOTE | ~2022-07-10 | XR_ITS ---
XR abdomen/kub 1V DATE: 07/10/2022 11:25 INDICATION: Left ureteral calculus; patient had lithotripsy. TECHNIQUE: AP view COMPARISON: 06/26/2022 KUB 06/16/[address] abdomen pelvis FINDINGS: Previously reported 6 mm calculus of proximal left ureter on 06/16/2022 CT abdomen pelvis ex amination, overlying the lower pole of the left kidney on last KUB of 06/26/2022, is no longer detect ed overlying the left ureter or the included portion of left kidney; consider repeat examination incl uding the upper abdomen to exclude any possibility the calcified calculus being situated at the very upper aspect of left kidney which is unlikely. Left internal urinary stent has been removed. The psoas shadows are intact. No bowel obstruction. IMPRESSION: Removal of left internal urinary stent. Previously reported 6 mm left urinary tract calci fied calculus is no longer evident; however, the upper third of the left kidney is excluded from exam ination Reviewed, dictated and finalized at Location A. Reviewed, dictated and finalized at location A. [facility] IMPRESSION: Removal of left internal urinary stent. Previously reported 6 mm le ft urinary tract calcified calculus is no longer evident; however, the upper th ird of the left kidney is excluded from examination
== END ==
PROVIDERS: PCP Family Medicine; Visit Provider Urology
DX: N20.1 Calculus of ureter (principal)
CPT/HCPCS: 74018

== ENCOUNTER → 2023-01-08 14:29 | Outpatient (CLI) | payer BC, SELFPAY ==
--- NOTE | ~2023-01-08 | XR_ITS ---
XR abdomen/kub 1V 01/08/2023 14:52 INDICATION: Left ureteral stone TECHNIQUE: KUB COMPARISON: None FINDINGS: Bowel gas pattern is normal. There is no evidence of free air, mass, organomegaly, ascites or obstruction. No abnormal calculi are seen. The bones appear intact. There are pelvic phlebolith s. IMPRESSION: 1: No acute abdominal abnormality identified. Reviewed, dictated and finalized at location B.
== END ==
PROVIDERS: PCP Family Medicine; Visit Provider Urology
DX: N20.1 Calculus of ureter (principal)
CPT/HCPCS: 74018

== ENCOUNTER 2024-11-20 08:54 | Emergency (ER) | payer OTHER, SELFPAY ==
--- NOTE | ~2024-11-20 | XR_ITS ---
EXAMINATION: XR finger 2nd RT min 2V DATE: 11/20/2024 09:37 INDICATION: Pain and abrasion at the right second digit 2 days after being shut in a car door TECHNIQUE: Dorsal palmar, lateral and 2 oblique views of the right second digit were obtained COMPARISON: None FINDINGS: Bone alignment is normal. No fracture. Joint spaces are normal. Soft tissues are unremarkable. IMPRESSION: 1. Negative right second digit radiographs. Reviewed, dictated and finalized at location A.
[2024-11-20 09:08] VITALS: BP 130/86; PULSE 83; RESP 16; TEMP 36.6; O2SAT 99
--- NOTE | 2024-11-20 09:16 | ED_ITS ---
HPI - Extremity Injury (Upper) General Chief Complaint: Extremity Injury, Upper Stated Complaint: Injured Finger Source: patient Mode of arrival: ambulatory Limitations: no limitations History of Present Illness HPI narrative: 54 y/o male presented for c/o laceration and pain to the right index finger following an injury 2 days ago. Says he smashed the finger in a car door. Since then he has kept the site clean and applied neosporin and a non stick dressing. Endorses swelling to palmar surface of the digit and pain with ROM to the laceration over the joint (PIP). Denies decreased sensation, numbness, tingling, weakness or deformity. Related Data Allergies Allergy/AdvReac Type Severity Reaction Status Date / Time Penicillins Allergy Unknown Rash Verified 11/20/24 09:05 Review of Systems Review of Systems: CONSTITUTIONAL: Denies body aches, fever, chills EYES: Denies visual changes ENT: Denies rhinorrhea, congestion CARDIOVASCULAR: Denies chest pain, palpitations, or edema. RESPIRATORY: Denies cough or dyspnea. GASTROINTESTINAL: Denies abdominal pain, nausea, vomiting, or diarrhea. SKIN: reports a wound right 2nd digit MUSCULOSKELETAL: reports right 2nd digit pain, laceration. All systems reviewed & are unremarkable except as noted in HPI and below PMFSH Past Medical History Medical History (Updated 11/20/24 @ 09:58 by Danni Avila, ERIC) Hypertension HLD (hyperlipidemia) Colon cancer screening Benign essential HTN History of kidney stones Mixed hyperlipidemia Surgical History Surgical History History of lithotripsy Family History Family History Father Family history of diabetes mellitus in first degree relative Family history of coronary artery disease Mother Family history of malignant neoplasm of thyroid Social History Social History Social History: Smoking packs per day: 0.75 Smoking cigarettes per day: 15.0 Years smoked: 6 Smoking pack-years: 4.50 Smoking status: Former smoker Tobacco type: cigarettes Smoking end date: 08/16/01 Alcohol intake: current Alcohol use details: OCCASIONALLY Substance use: never Substance use type: does not use Do You Feel Safe in your Home?: Yes Lack of Transportation: No Lack of Food: Never True Current Housing: I Have Housing Concerned About Future Housing: No Difficulty Paying Gas/Electric Bills: No Difficulty Paying for Meds: No Currently Unemployed: No Education: Don't Know Difficulty w/ Childcare or Family Care: No Living arrangements: with family Occupation/Education: occupation Gender identity (if verbalized by the patient): Male Sexual Orientation (if Verbalized by the Patient): Straight or Heterosexual Spiritual care concerns: No Comments At time of signature, I have reviewed and agree with nursing past medical, surgical, social and family history unless otherwise noted. Please see nursing chart for further information. There is no relevant family history pertinent to the presenting complaint Exam Narrative: GENERAL: Well-appearing CHEST: Speaks in full sentences. No respiratory distress. HEART: Regular rate and rhythm. Normal and equal peripheral pulses. EXTREMITIES: Right 2nd digit has normal strength and sensation, slightly decreased range of motion with flexion due to 0.5cm linear clean laceration over PIP, no bleeding. Mild bruising to palm of PIP. No swelling. No point tenderness, No obvious deformity; alignment normal, pulse palpable and equal bilaterally, skin warm, dry, pink. Capillary refill less than 3 seconds. SKIN: Warm, dry NEURO: Alert and oriented x3. PSYCH: Normal mood and affect Course Course Emergency Course: Patient is aware of diagnosis, understands and agrees to treatment plan. Anticipatory guidance given. Patient agrees to follow-up as directed and is aware of reasons to seek care at the emergency department. Portions of this record may have been created with voice recognition software Level of Care: Express Care Visit Vital Signs Vital signs: Vital Signs Temperature 97.9 F 11/20/24 09:08 Pulse Rate 83 11/20/24 09:08 Respiratory Rate 16 11/20/24 09:08 Blood Pressure 130/86 11/20/24 09:08 Pulse Oximetry 99 11/20/24 09:08 Temperature 97.9 F 11/20/24 09:08 Pulse Rate 83 11/20/24 09:08 Respiratory Rate 16 11/20/24 09:08 Blood Pressure 130/86 11/20/24 09:08 Pulse Oximetry 99 11/20/24 09:08 Reviewed MDM - Extremity Injury (Upper) MDM Narrative Medical decision making narrative: Discussed physical exam findings and xray. Wound dry, JUSTA. Advised supportive measures and signs/symptoms to go to the ER. Pt is appropriate for outpt treatment and f/u. Differential Diagnosis Differential diagnosis: Likely other (Laceration, abrasion, avulsion, contusion, finger fracture, finger sprain) Imaging Data Radiologist's impression: Patient: Yoni Segovia : 1970 MR#: [id number] Age: 54 Acct:[id number] Loc: [id number] ADM Date: 11/20/24Attending Dr: Ordering Physician: Danni Avila APRN Date of Service: 11/20/24 Procedure(s): XR finger 2nd RT min 2V Accession Number(s): [id number] cc: Danni Avila APRN; MACHINE OPERATOR PACKAGING PHYSICIAN~ EXAMINATION: XR finger 2nd RT min 2V DATE: 11/20/2024 09:37 INDICATION: Pain and abrasion at the right second digit 2 days after being shut in a car door TECHNIQUE: Dorsal palmar, lateral and 2 oblique views of the right second digit were obtained COMPARISON: None FINDINGS: Bone alignment is normal. No fracture. Joint spaces are normal. Soft tissues are unremarkable. IMPRESSION: 1. Negative right second digit radiographs. Discharge Plan Discharge Clinical Impression: Contusion of finger, Abrasion of finger Patient Disposition: Home Condition: Stable Instructions: Antibiotic Form, Abrasion (ED) Additional Instructions: Keep the area clean and dry - cleanse with warm water and mild soap and allow to fully dry. Ok to apply neosporin to the site Keep it open to air (no bandages unless draining or at risk for contamination) Tetanus updated today Watch for worsening symptoms including pain, redness, swelling, streaking, pus/drainage, fever. Go to the ER with any of these symptoms or concerns. Follow up with primary care provider in 1 week as needed. Patient Language: Slovak Prescriptions: No Action valsartan 80 mg tablet 80 mg PO DAILY Qty: 90 2RF rosuvastatin 10 mg tablet See Rx Instructions .ROUTE .COMPLEX Qty: 90 2RF Dose Instruction: TAKE 1 TABLET BY MOUTH DAILY Rx Instructions: TAKE 1 TABLET BY MOUTH DAILY Follow-up/Referrals: PHYSICIAN,MACHINE OPERATOR PACKAGING [Primary Care Provider] - Time of Disposition: 09:58
[2024-11-20] MEDS: TETANUS,DIPHTHERIA,AC PERTUSSIS ADULT (0.5 ML) BOOSTRIX IM (09:28)
== END 2024-11-20 10:00 | disposition home or self-care (01) ==
PROVIDERS: Emergency Provider Nurse Practitioner Family
DX: S60.021A Contusion of right index finger without damage to nail, initial encounter (principal); V48.3XXA Unspecified car occupant injured in noncollision transport accident in nontraffic accident, initial encounter; S60.412A Abrasion of right middle finger, initial encounter; Z23 Encounter for immunization; I10 Essential (primary) hypertension; E78.5 Hyperlipidemia, unspecified; E78.2 Mixed hyperlipidemia; Z87.891 Personal history of nicotine dependence
CPT/HCPCS: 73140; 90471; 90715; 99213; G0463